=== PATIENT | male | born 1995 | race Caucasian/White ===

== ENCOUNTER 2020-11-05 08:23 | Emergency (ER) | payer SELFPAY ==
[2020-11-05 08:25] VITALS: BP 140/86; PULSE 94; RESP 16; TEMP 37.2; O2SAT 98; BMI 23.7
--- NOTE | 2020-11-05 08:31 | [facility].EDGENADL ---
ED Disposition Clinical Impression: Acromioclavicular joint separation Qualifiers: Encounter type: initial encounter Laterality: right Qualified Code(s): S43.101A - Unspecified dislocation of right acromioclavicular joint, initial encounter Chin laceration Qualifiers: Encounter type: initial encounter Qualified Code(s): S01.81XA - Laceration without foreign body of other part of head, initial encounter Disposition: Home, Self-Care Condition on Discharge: Good Instructions: How to Use a Sling, DI for Laceration Repair, DI for AC Joint Separation Additional Instructions: Sling right arm for 5 days. Ice to shoulder for pain pain or swelling. Ibuprofen for pain. Follow-up with orthopedics for shoulder injury, call for appointment. Additional instructions for FACIAL LACERATION: Clean the wound daily with soap and water. You may shower. Do not shave the area of stitches. Apply a thin film of antibiotic ointment such as neosporin or triple antibiotic after showering. Avoid submerging the wound, no swimming. See your primary care physician or return to the [facility] in 5 days for staple removal. The [facility] is open 9AM to 9 PM, 7 days a week. Return if any signs of infection including increasing pain, pus drainage, swelling, redness, red streaks, or fever. Referrals: PCP,No [Primary Care Provider] - Gilma Campbell MD [Physician] - - Critical Care Critical Care Time: No Attestation: On , the high probability of a clinically significant, sudden or life threatening deterioration of the following system(s) required my full and direct attention, intervention and personal management. The time I documented below is in addition to time spent performing reported procedures but includes the following listed in this critical care notation. Medical Decision Making - Donald Inquiry Pt receiving controlled substance: No Vital Signs: 11/05/20 08:25 Temperature 98.9 F Temperature Source Oral Pulse Rate [Radial] 94 H Respiratory Rate 16 Blood Pressure [Right Arm] 140/86 Blood Pressure Mean [Right Arm] 104 Blood Pressure Position [Right Arm] Sitting 02 Sat by Pulse Oximetry 98 Oxygen Delivery Method Room Air Orders (Tests/Meds): ED MEDICATIONS Discontinued Medications Generic Name Dose Route Start Last Admin Trade Name Freq PRN Reason Stop Dose Admin Lidocaine/Epinephrine 10 ml 11/05/20 08:36 11/05/20 08:43 Lidocaine 2% W/Epi 1:100,000 20ml Vial IJ 11/05/20 08:37 4 cc ONCE ONE Administration Tetanus/Reduced Diphtheria/Acell Pertussis 0.5 ml 11/05/20 08:37 11/05/20 08:44 Tet/Diphth/Pert-Adult 0.5ml Syringe IM 11/05/20 08:38 0.5 ml .ONCE ONE Administration - Radiology Data #1 Image(s): Shoulder Image Reviewed: Yes I reviewed the patient's radiology image, Yes I have reviewed radiologist's interpretation Preliminary Findings: Normal/NAD PROCEDURE: XR SHOULDER RT MIN 2V CLINICAL INDICATION: injury Pain COMPARISON: No exams were available for comparison FINDINGS: No fracture or dislocation. No lytic or blastic change. There is normal mineralization. The joint spaces are well-preserved. No significant degenerative/arthritic changes. No erosive changes evident. Other findings:None. IMPRESSION: No acute findings. Dictated by: José Miguel Hurtado MD 11/05/2020 08:58 José Miguel Hurtado MD in [place] 11/05/2020 08:58 General Adult HPI - General Stated complaint: [id number] lac to chin, home accident Time Seen by Provider: 11/05/20 08:31 - History of Present Illness HPI narrative: Slipped in the shower and fell striking his chin on the edge of the tub, sustained a laceration to his chin. Did not injure his teeth. Slightly sore on either side of his jaw, but no severe pain. No loss consciousness. No neck injury. His only other injuries to the top of his right shoulder. Hard to raise his right arm. - Related Data Home
--- NOTE | 2020-11-05 08:36 | XR_ITS ---
PROCEDURE: XR SHOULDER RT MIN 2V CLINICAL INDICATION: injury Pain COMPARISON: No exams were available for comparison FINDINGS: No fracture or dislocation. No lytic or blastic change. There is normal mineralization. The joint spaces are well-preserved. No significant degenerative/arthritic changes. No erosive changes evident. Other findings:None. IMPRESSION: No acute findings. Dictated by: José Miguel Hurtado MD 11/05/2020 08:58 José Miguel Hurtado MD in [place] 11/05/2020 08:58
[2020-11-05 09:23] VITALS: BP 132/74; PULSE 88; RESP 16; TEMP 36.6; O2SAT 98
== END 2020-11-05 09:25 | disposition home or self-care (01) ==
PROVIDERS: Emergency Provider Emergency Medicine
DX: S01.81XA Laceration without foreign body of other part of head, initial encounter (principal); S43.101A Unspecified dislocation of right acromioclavicular joint, initial encounter; W18.2XXA Fall in (into) shower or empty bathtub, initial encounter; Y92.012 Bathroom of single-family (private) house as the place of occurrence of the external cause; Z23 Encounter for immunization
CPT/HCPCS: 12011; 73030; 90471; 90715; 99282

== ENCOUNTER 2024-03-12 08:56 | Outpatient (CLI) | payer BC, SELFPAY ==
--- NOTE | 2024-03-12 09:03 | US_ITS ---
FINAL REPORT TECHNIQUE: Sonographic images of the abdomen were obtained in all four quadrants. CLINICAL HISTORY: LUQ PAIN, R/O HERNIA COMPARISON: None FINDINGS: LIVER: Fatty infiltrated.. No focal hepatic lesion or intrahepatic biliary dilatation. GALLBLADDER: No gallstones. No pericholecystic fluid collection or gallbladder wall thickening. The common duct measures 4 mm. This is within normal limits for age. PANCREAS: Unremarkable. RIGHT KIDNEY: 10.8 cm. No hydronephrosis, mass or stone. LEFT KIDNEY: 11.9 cm. No hydronephrosis, mass or stone. SPLEEN: 11.2 cm. No focal splenic lesion. AORTA/IVC: No abdominal aortic aneurysm. Visualized IVC within normal limits. OTHER: No ascites. Imaging of the left abdomen at the palpable abnormality reveals a hypoechoic 2.1 cm soft tissue nodule favored to represent a lipoma. IMPRESSION: Fatty liver. Probable abdominal wall lipoma. Reviewed, Interpreted and Dictated by Jo Ann Pino MD Transcribed by Zenaida Dent Authenticated and [facility]
== END 2024-03-12 23:59 | disposition home or self-care (01) ==
LOC: RAD 08:58
PROVIDERS: PCP Nurse Practitioner; Visit Provider Nurse Practitioner
DX: R10.12 Left upper quadrant pain (principal)
CPT/HCPCS: 76700